=== PATIENT | female | born 1950 | race Hispanic/Latino ===

== ENCOUNTER 2023-02-11 10:40 | Emergency (ER) | payer MEDICARE ==
[~2023-02-11] VITALS: Ht 149.9 cm; Wt 54.4 kg
[2023-02-11] MEDS ORDERED: 0.9%NACL 1000ML 1,000 ML IV ONE (12:30)
[2023-02-11 12:53] LABS: BASOPHILS % (AUTO) 0.4 % (0.0-5.0); HEMATOCRIT 33.8 % (36-48); LYMPHOCYTES % (AUTO) 6.9 % (21.0-51.0); MEAN CORPUSCULAR HEMOGLOBIN 31.8 pg (27.0-33.0); MEAN CORPUSCULAR HGB CONC 32.2 g/dL (32.0-36.0); MEAN CORPUSCULAR VOLUME 98.5 fL (79-99); MONOCYTES % (AUTO) 6.9 % (3.0-13.0); NEUTROPHILS % (AUTO) 85.1 % (40.0-77.0); NUCLEATED RED BLOOD CELLS 0.1 % (0.0-0.19); PLATELET COUNT (AUTO) 210 K/uL (130-400); RED BLOOD CELL COUNT(AUTO) 3.43 MIL/uL (4.00-5.50); RED CELL DISTRIBUTION WIDTH 17.9 % (11.0-15.5); WHITE BLOOD COUNT (AUTO) 13.8 K/uL (4.8-10.8)
[2023-02-11 13:08] LABS: CREATININE 0.7 mg/dL (0.5-1.5); POTASSIUM 3.4 mmol/L (3.5-5.1)
[2023-02-11 13:11] LABS: BILIRUBIN,URINE LARGE mg/dL (NEGATIVE); GLUCOSE, URINE (UA) NEGATIVE (NEGATIVE); KETONES,URINE >=80 mg/dL (NEGATIVE); LEUKOCYTE ESTERASE ,URINE MODERATE Leu/uL (NEGATIVE); NITRATE,URINE POSITIVE (NEGATIVE); OCCULT BLOOD,URINE LARGE (NEGATIVE); PH,URINE 6.5 (5.0-8.0); PROTEIN,URINE >=300 mg/dL (NEGATIVE)
[2023-02-11 13:12] LABS: ALBUMIN 3.4 g/dL (3.5-5.0); TOTAL PROTEIN, SERUM 8.1 g/dL (6.0-8.3)
[2023-02-11 13:16] LABS: APPEARANCE,URINE BLOODY (CLEAR); COLOR,URINE RED (YELLOW)
[2023-02-11 13:18] LABS: BACTERIA,URINE Moderate /HPF (None Seen); RBC,URINE TNTC /HPF (0-1)
[2023-02-11 13:19] LABS: SQUAMOUS EPITHELIAL CELL,UR 0-2 /HPF (0-2)
[2023-02-11] MEDS ORDERED: CEPH500C2 PO (13:41)
[2023-02-11] MEDS ORDERED: PHEN-847 PO (13:41)
[2023-02-11] MEDS ORDERED: CEFTRIAXONE 1G VIAL IVP ONE (14:00)
[2023-02-11 14:34] VITALS: BP 124/82
== END 2023-02-11 14:39 | disposition home or self-care (01) ==
LOC: EDH 10:40
DX: N39.0 Urinary tract infection, site not specified (principal); D64.9 Anemia, unspecified; R74.8 Abnormal levels of other serum enzymes; Z98.51 Tubal ligation status; E86.0 Dehydration
CPT/HCPCS: 99285; 74176; 96374; 96361; 80053; 85025; 87077; 87088; 87186; 81001; 36415; J7030; J0696

== ENCOUNTER 2023-07-24 11:44 | Emergency (ER) | payer MEDICARE ==
[~2023-07-24] VITALS: Ht 160 cm; Wt 65.8 kg
[2023-07-24 11:58] LABS: BASOPHILS # (AUTO) 0.03 K/uL (0.00-0.20); BASOPHILS % (AUTO) 0.2 % (0.0-5.0); EOSINOPHILS # (AUTO) 0.15 K/uL (0.00-0.70); EOSINOPHILS % (AUTO) 0.9 % (0.0-8.0); HEMATOCRIT 27.7 % (36-48); LYMPHOCYTES # (AUTO) 1.7 K/uL (1.0-4.8); LYMPHOCYTES % (AUTO) 10.7 % (21.0-51.0); MEAN CORPUSCULAR HEMOGLOBIN 34.8 pg (27.0-33.0); MEAN CORPUSCULAR HGB CONC 33.6 g/dL (32.0-36.0); MEAN CORPUSCULAR VOLUME 103.7 fL (79-99); MONOCYTES # (AUTO) 0.9 K/uL (0.1-1.0); MONOCYTES % (AUTO) 5.6 % (3.0-13.0); NEUTROPHILS # (AUTO) 13.3 K/uL (1.8-7.7); PLATELET COUNT (AUTO) 189 K/uL (130-400); RED BLOOD CELL COUNT(AUTO) 2.67 MIL/uL (4.00-5.50); RED CELL DISTRIBUTION WIDTH 21.7 % (11.0-15.5); WHITE BLOOD COUNT (AUTO) 16.2 K/uL (4.8-10.8)
[2023-07-24 12:08] LABS: INR 1.27 (0.85-1.15); PROTHROMBIN TIME 14.5 SEC (9.6-11.6)
[2023-07-24 12:09] LABS: PARTIAL THROMBOPLASTIN TIME 32.2 SEC (26.3-35.5)
[2023-07-24 13:03] LABS: CREATININE 0.7 mg/dL (0.5-1.5); POTASSIUM 4.5 mmol/L (3.5-5.1)
[2023-07-24 13:08] LABS: ALBUMIN 1.8 g/dL (3.5-5.0); BILIRUBIN,TOTAL 6.7 mg/dL (0.2-1.0); TOTAL PROTEIN, SERUM 5.9 g/dL (6.0-8.3)
[2023-07-24] MEDS ORDERED: 0.9% NACL 500ML IV.SOLN 500 ML IV ONE (16:00)
[2023-07-24] MEDS ORDERED: ALBUMIN (HUMAN) 25% 50 ML IV SCH (17:00)
[2023-07-24 20:45] VITALS: BP 100/62; PULSE 88; RESP 18; O2SAT 100
== END 2023-07-24 20:59 ==
LOC: EDH 11:44
DX: R18.8 Other ascites (principal); I95.9 Hypotension, unspecified
CPT/HCPCS: 49083; 99285; 96365; 80053; 85025; 85610; 85730; 36415; P9047; C1729

== ENCOUNTER 2023-07-27 13:48 | Emergency (ER) | payer MEDICARE ==
[~2023-07-27] VITALS: Ht 149.9 cm; Wt 49.9 kg
[2023-07-27 16:13] LABS: BASOPHILS # (AUTO) 0.04 K/uL (0.00-0.20); BASOPHILS % (AUTO) 0.3 % (0.0-5.0); EOSINOPHILS # (AUTO) 0.15 K/uL (0.00-0.70); EOSINOPHILS % (AUTO) 1.1 % (0.0-8.0); HEMATOCRIT 29.6 % (36-48); IMMATURE GRANULOCYTE ABSOLUTE 0.07 K/uL (0-1); LYMPHOCYTES # (AUTO) 2.2 K/uL (1.0-4.8); LYMPHOCYTES % (AUTO) 16.2 % (21.0-51.0); MEAN CORPUSCULAR HEMOGLOBIN 33.9 pg (27.0-33.0); MEAN CORPUSCULAR HGB CONC 32.4 g/dL (32.0-36.0); MEAN CORPUSCULAR VOLUME 104.6 fL (79-99); MONOCYTES # (AUTO) 0.9 K/uL (0.1-1.0); NEUTROPHILS # (AUTO) 10.1 K/uL (1.8-7.7); NEUTROPHILS % (AUTO) 74.9 % (40.0-77.0); PLATELET COUNT (AUTO) 194 K/uL (130-400); RED BLOOD CELL COUNT(AUTO) 2.83 MIL/uL (4.00-5.50); RED CELL DISTRIBUTION WIDTH 20.6 % (11.0-15.5); WHITE BLOOD COUNT (AUTO) 13.5 K/uL (4.8-10.8)
[2023-07-27 16:23] LABS: CREATININE 0.7 mg/dL (0.5-1.5); POTASSIUM 4.9 mmol/L (3.5-5.1)
[2023-07-27 16:25] LABS: INR 1.32 (0.85-1.15)
[2023-07-27 16:27] LABS: ALBUMIN 1.9 g/dL (3.5-5.0); BILIRUBIN,TOTAL 6.2 mg/dL (0.2-1.0); PARTIAL THROMBOPLASTIN TIME 28.2 SEC (26.3-35.5)
[2023-07-27] MEDS ORDERED: LIDOCAINE HCL 1% 20 ML VIAL ONE (17:58)
[2023-07-27] MEDS ORDERED: CIPR-279 PO (18:22)
[2023-07-27 19:20] VITALS: BP 91/51; PULSE 89; RESP 18; O2SAT 99
== END 2023-07-27 19:58 | disposition home or self-care (01) ==
LOC: EDH 13:48
DX: R06.02 Shortness of breath (principal)
CPT/HCPCS: 49083; 99285; 80053; 85025; 85610; 85730; 36415; C1729

== ENCOUNTER 2023-07-31 09:15 | Emergency (ER) | payer MEDICARE ==
[~2023-07-31] VITALS: Ht 149.9 cm; Wt 49.9 kg
[~2023-07-31 09:15] MED LIST: CIPR-279 PO
[2023-07-31 09:18] VITALS: BP 95/55; PULSE 94; RESP 16
[2023-07-31 10:17] LABS: BASOPHILS # (AUTO) 0.06 K/uL (0.00-0.20); BASOPHILS % (AUTO) 0.3 % (0.0-5.0); EOSINOPHILS % (AUTO) 1.6 % (0.0-8.0); HEMATOCRIT 28.5 % (36-48); IMMATURE GRANULOCYTE ABSOLUTE 0.18 K/uL (0-1); LYMPHOCYTES # (AUTO) 2.9 K/uL (1.0-4.8); LYMPHOCYTES % (AUTO) 15.4 % (21.0-51.0); MEAN CORPUSCULAR HEMOGLOBIN 33.8 pg (27.0-33.0); MEAN CORPUSCULAR HGB CONC 32.6 g/dL (32.0-36.0); MEAN CORPUSCULAR VOLUME 103.6 fL (79-99); MONOCYTES # (AUTO) 1.6 K/uL (0.1-1.0); MONOCYTES % (AUTO) 8.7 % (3.0-13.0); NEUTROPHILS # (AUTO) 13.7 K/uL (1.8-7.7); PLATELET COUNT (AUTO) 273 K/uL (130-400); RED BLOOD CELL COUNT(AUTO) 2.75 MIL/uL (4.00-5.50); RED CELL DISTRIBUTION WIDTH 19.5 % (11.0-15.5); WHITE BLOOD COUNT (AUTO) 18.8 K/uL (4.8-10.8)
[2023-07-31 10:27] LABS: INR 1.25 (0.85-1.15); PROTHROMBIN TIME 14.3 SEC (9.6-11.6)
[2023-07-31 10:29] LABS: CREATININE 0.8 mg/dL (0.5-1.5); PARTIAL THROMBOPLASTIN TIME 31.1 SEC (26.3-35.5); POTASSIUM 4.4 mmol/L (3.5-5.1)
[2023-07-31 10:34] LABS: ALBUMIN 1.8 g/dL (3.5-5.0); BILIRUBIN,TOTAL 5.8 mg/dL (0.2-1.0); TOTAL PROTEIN, SERUM 6.1 g/dL (6.0-8.3)
[2023-07-31] MEDS ORDERED: ALBUMIN (HUMAN) 25% 50 ML IV SCH (13:00)
== END 2023-07-31 15:16 | disposition home or self-care (01) ==
LOC: EDH 09:15
DX: R18.8 Other ascites (principal); R14.0 Abdominal distension (gaseous)
CPT/HCPCS: 36415; 80053; 83690; 85025; 85610; 85730

== ENCOUNTER 2023-08-01 05:49 | Emergency (ER) | payer MEDICARE ==
[~2023-08-01] VITALS: Ht 149.9 cm; Wt 49.9 kg
[2023-08-01 07:08] LABS: BASOPHILS # (AUTO) 0.07 K/uL (0.00-0.20); BASOPHILS % (AUTO) 0.4 % (0.0-5.0); EOSINOPHILS # (AUTO) 0.26 K/uL (0.00-0.70); EOSINOPHILS % (AUTO) 1.4 % (0.0-8.0); HEMATOCRIT 33.3 % (36-48); IMMATURE GRANULOCYTE ABSOLUTE 0.15 K/uL (0-1); LYMPHOCYTES # (AUTO) 3.7 K/uL (1.0-4.8); LYMPHOCYTES % (AUTO) 20.3 % (21.0-51.0); MEAN CORPUSCULAR HEMOGLOBIN 33.8 pg (27.0-33.0); MEAN CORPUSCULAR HGB CONC 32.1 g/dL (32.0-36.0); MONOCYTES # (AUTO) 1.2 K/uL (0.1-1.0); MONOCYTES % (AUTO) 6.4 % (3.0-13.0); NEUTROPHILS # (AUTO) 12.7 K/uL (1.8-7.7); NEUTROPHILS % (AUTO) 70.7 % (40.0-77.0); PLATELET COUNT (AUTO) 288 K/uL (130-400); RED BLOOD CELL COUNT(AUTO) 3.17 MIL/uL (4.00-5.50); RED CELL DISTRIBUTION WIDTH 19.1 % (11.0-15.5)
[2023-08-01 07:19] LABS: ALBUMIN 2.1 g/dL (3.5-5.0); BILIRUBIN,TOTAL 6.4 mg/dL (0.2-1.0); CREATININE 0.9 mg/dL (0.5-1.5); POTASSIUM 4.6 mmol/L (3.5-5.1); TOTAL PROTEIN, SERUM 7.2 g/dL (6.0-8.3)
[2023-08-01 07:45] LABS: INR 1.19 (0.85-1.15); PROTHROMBIN TIME 13.6 SEC (9.6-11.6)
[2023-08-01 07:46] LABS: PARTIAL THROMBOPLASTIN TIME 28.8 SEC (26.3-35.5)
[2023-08-01 13:47] VITALS: BP 98/56; PULSE 81; RESP 17; O2SAT 99
== END 2023-08-01 13:48 | disposition home or self-care (01) ==
LOC: EDH 05:49
DX: R18.8 Other ascites (principal)
CPT/HCPCS: 49083; 99285; 80053; 85025; 85610; 85730; 36415; C1729